=== PATIENT | male | born 1950 ===

== ENCOUNTER → 2019-06-08 | Outpatient (CLI) | payer OTHER ==
[~2019-06-08] VITALS: Ht 177.8 cm; Wt 77.1 kg
[~2019-06-08] MED LIST: AMBIEN CR12.5 MG PO; CELEBREX 200 M200 MG PO; HYDROCODON-ACE1 EAC7 PO; HYZAAR 100-12.1 EACH PO; LIPITOR 20 MG T20 M1 PO; TRAMADOL 50 MG50 MG PO; VIAGRA50 MG PO; XANAX1 MG PO
--- NOTE | ~2019-06-08 | HPC ---
[facility] [address] [address] PAIN MANAGEMENT CONSULTATION Name: ILANA KNOWLES Room #: REG Mandie Saji.#: [id number] Admission: 06/08/19 Attend Phys: Fly Brown MD Discharge: Date of : 52 Report #: [id number] THIS REPORT FOR: cc: Davi Keenan MD, Scott C. MD Morgan, Richard L. MD ~ THIS REPORT FOR: //name// CC: Paul Keenan DATE OF SERVICE: 06/08/2019 CHIEF COMPLAINT: Bilateral shoulder pain. HISTORY OF PRESENT ILLNESS: The patient is a friend who is here today for consultation regarding chronic pain. He is a pleasant, outgoing 69-year-old gentleman who has had ongoing problems with his shoulders, which has become progressive and more troublesome. Although the average daily pain is manageable at a level of 3/10, the pain can certainly increase rapidly up to an 8/10. He is an avid golfer and it is getting harder and harder for him to play golf and this is discouraging and disappointing for him! He has seen Dr. Barakat and has had several injections, which are helpful, but very temporary. He has taken a few nonsteroidal anti-inflammatory medications, but does not do so on a regular basis. He finds that they are not as helpful and understands that there are some side effects. He has 50-mg tramadol tablets and has taken one to two tablets a day under direction of Dr. Barakat and although it is helpful, it is not as helpful as he would like. Pain today is 3/10, constant pulling. He describes it in his shoulders as tender and at times sharp like a knife. MEDICATIONS: Losartan, hydrochlorothiazide 12.5, tramadol 50 mg 1 to 2 daily, Ambien CR 12.5 daily, alprazolam 1 mg at bedtime for sleep, atorvastatin, and generic sildenafil p.r.n. 50 mg. ALLERGIES: None. PAST MEDICAL HISTORY: Positive for hypertension. PAST SURGICAL HISTORY: He has had meniscectomy of his left knee in 1987. In 2001, he had a tendon repair torn in his left hand. Dickinson teeth removal in May 1999. Cataract surgery, 04/2019. [facility] [address] [place] [address] PAIN MANAGEMENT CONSULTATION Name: ILANA KNOWLES Room #: REG ERIC Alves#: [id number] Admission: 06/08/19 Attend Phys: Fly Brown MD Discharge: Date of : 52 Report #: [id number] SOCIAL HISTORY: Working in insurance sales. Denies use of tobacco enjoys alcohol 1-2 beverages a day in a social setting. Impacted pain score is low at 20. REVIEW OF SYSTEMS: Positive for recent cataract surgery, some hearing loss consistent with age and nocturia. Difficulty falling asleep for which he takes alprazolam and Ambien CR. PHYSICAL EXAMINATION: GENERAL: He is pleasant, alert, oriented, no signs of depression, anxiety or overmedication. He moves independently and easily from sitting to standing position, ambulates without difficulty. VITAL SIGNS: Blood pressure 146/90, heart rate is elevated at 115, respirations 16, O2 sat 97. CHEST: Clear. CARDIAC: Rhythm is regular. MUSCULOSKELETAL: Examination of the shoulders reveals excellent range of motion, mild tenderness, no crepitus. Shoulders are not swollen. IMPRESSION: Bilateral shoulder pain. I do not have his x-rays to review, but I do have a few notes from Dr. Barakat. He has in the past complained of low back pain as noted in Dr. Barakat's notes. Dr. 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 RECOMMENDATIONS: We talked about the importance of regular exercise and perhaps physical therapy. Use of light weights to improve strength of the shoulder girdle was reviewed. We discussed medications, particularly the use of tramadol. He does not find it as effective. A low dose of a stronger opioid while controversial these days could be helpful in certain settings and I do not think he should be denied a pain pill that might be effective if it is used cautiously, carefully and on a p.r.n. basis. We discussed the opioid crisis, the CDC guidelines and recommendations for the use of opioids. He has tried many other measures. It would certainly not be his first course of therapy, but it would be something that he could use perhaps to help him play golf. Discussed the difference between hurting and hurting himself. He is not currently on a nonsteroidal anti-inflammatory drug and trials could be undertaken. He has never had Celebrex and a single once a day REDD-2 inhibiting anti-inflammatory is helpful for many patients and could be taken on a p.r.n. basis. The visit was cut short due to his need to leave for an errand but I will see him back in the clinic as needed. I am going to give him a small prescription of hydrocodone, a dozen tablets 5 mg that he can use for severe episodes of pain [facility] [address] [place] [address] PAIN MANAGEMENT CONSULTATION Name: ILANA KNOWLES Room #: AURA Alves#: [id number] Admission: 06/08/19 Attend Phys: Fly Brown MD Discharge: Date of : 52 Report #: [id number] when the pain is in the level of 8-10 and also Celebrex. Instructions were given for both medicines. If he decides he wants to remain on these medicines, I would be glad to prescribe them for him or he can discuss this further with his primary care physician. There are a variety of opinions on even low dose opioids in the setting, but I think it is perfectly reasonable for us to consider the option as long as they are used cautiously as well as respectfully and under the guidance of a single physician. By: [id number] Fly Brown MD /nt
[2019-06-08 15:30] VITALS: BP 146/90
--- NOTE | 2019-06-08 15:56 | NUR ---
Pain Clinic Assessment: 1. History of Osteoarthritis: SHOULDERS BACK History of Rheumatoid Arthritis: Not Applicable 2. Height: 5 ft. 10 in. 177.8 cm. Weight: 170.0 lb. oz. 77.112 kg. Patient's BMI: 24.4 3. Vital Signs: BP: 146/90 Pulse: 115 Resp: 16 Temp: 02 Sat: 97 ECG Mon: 4. Pain Intensity: 1 5. Fall Risk: Dizziness: N Needs help standing or walking: N Fallen in the last 3 months: Y Fall risk comments: 6. Patient on Blood Thinner: None 7. History of Hypertension: Y 8. Opioid Therapy greater than 6 weeks: N Opiate Contract Signed: 9. Risk Assessment Tool Provided: LOW RISK 0/3 10. Functional Assessment Tool: 11. Recreational Drug Use: Never Drug Type: Tobacco Use: Never Smoker Tobacco Type: Amount or Packs/day: How Many Years: Alcohol Use: Yes Frequency: Weekly Quant: 10
== END ==
LOC: PAIN 07:08
DX: M25.511 Pain in right shoulder (principal); M25.512 Pain in left shoulder; I10 Essential (primary) hypertension; Z79.899 Other long term (current) drug therapy

== ENCOUNTER → 2019-06-29 | Outpatient (CLI) | payer OTHER ==
[~2019-06-29] VITALS: Ht 177.8 cm; Wt 81.9 kg
--- NOTE | ~2019-06-29 | HPC ---
[facility] [address] [address] PAIN MANAGEMENT CONSULTATION Name: ILANA KNOWLES Room #: REG ERIC TalaveraLeonidesJose Juan.#: [id number] Admission: 06/29/19 Attend Phys: Fly Brown MD Discharge: Date of : 52 Report #: [id number] THIS REPORT FOR: cc: Davi Keenan MD, Scott C. MD Morgan, Richard L. MD ~ CC: Fly Keenan Followup visit for bilateral shoulder pain, hand pain and bilateral knee pain. The patient has multi-joint arthralgia. Pain varies day-to-day, it is only one today. Pain is worse by exercise and golf. We talked about different medications. I gave him a trial of Celebrex and prescriptions were provided for him on his last visit on 06/08/2019. He has returned today reporting that small prescription of hydrocodone was not very helpful. He did not like taking it. He has had benefit from tramadol in the past. MEDICATIONS: Hydrocodone discontinued, Celebrex 200 mg once daily, sildenafil 50 mg as needed, atorvastatin, alprazolam 1 mg daily as needed, zolpidem, tramadol, Hyzaar. PHYSICAL EXAMINATION: Blood pressure 154/100, heart rate 85, respirations 16. BMI is 25. Tenderness in shoulders, hips, knees, hands. No redness or inflammation. IMPRESSION: Bilateral shoulder pain with arthralgia and glenohumeral degenerative joint disease, multi-joint arthralgia. RECOMMENDATIONS: 1. Continue Celebrex 200 mg daily. 2. Tramadol 50 mg 1 t.i.d. p.r.n. severe pain, prescription for 90 tablets. 3. Continue exercise. 4. Referral to [facility] Mcwilli[facility] for physical therapy and assessment of shoulders exercises and golf-related suggestions. By: [id number] Fly Brown MD /nt
[2019-06-29 10:53] VITALS: BP 154/100
--- NOTE | 2019-06-29 11:06 | NUR ---
Pain Clinic Assessment: 1. History of Osteoarthritis: SHOULDERS BACK History of Rheumatoid Arthritis: Not Applicable 2. Height: 5 ft. 10 in. 177.8 cm. Weight: 180.6 lb. oz. 81.920 kg. Patient's BMI: 25.9 3. Vital Signs: BP: 154/100 Pulse: 85 Resp: 16 Temp: 02 Sat: 97 ECG Mon: 4. Pain Intensity: 1 5. Fall Risk: Dizziness: N Needs help standing or walking: N Fallen in the last 3 months: N Fall risk comments: 6. Patient on Blood Thinner: None 7. History of Hypertension: Y 8. Opioid Therapy greater than 6 weeks: N Opiate Contract Signed: 9. Risk Assessment Tool Provided: LOW RISK 0/3 10. Functional Assessment Tool: 11. Recreational Drug Use: Never Drug Type: Tobacco Use: Never Smoker Tobacco Type: Amount or Packs/day: How Many Years: Alcohol Use: Yes Frequency: Weekly Quant: 10-12 DRINKS
== END ==
LOC: PAIN 06:51
DX: M19.011 Primary osteoarthritis, right shoulder (principal); M19.012 Primary osteoarthritis, left shoulder; M79.641 Pain in right hand; M79.642 Pain in left hand; M25.561 Pain in right knee; M25.562 Pain in left knee; Z79.899 Other long term (current) drug therapy